=== PATIENT | male | born 1985 | race Caucasian/White ===

== ENCOUNTER 2020-06-27 15:27 | Emergency (ER) | payer OTHER ==
[~2020-06-27] VITALS: Ht 188 cm; Wt 88.5 kg
[2020-06-27 15:47] VITALS: Ht 188 cm; Wt 88.5 kg
[2020-06-27 17:22] LABS: BASOPHIL % 0.4 % (0.2-1.5); PLATELET COUNT 171 x10^3mcL (152-348); RED CELL DISTRIBUTION WIDTH 13.1 % (12.1-16.2)
[2020-06-27 17:38] LABS: CARBON DIOXIDE 32.1 mmol/L (21-32); CHLORIDE SERUM 101 mmol/L (98-107); GFR1 > 60 mL/min; GLUCOSE SERUM 88 mg/dL (74-106); POTASSIUM SERUM 3.9 mmol/L (3.5-5.1); SODIUM SERUM 137 mmol/L (136-145)
[2020-06-27 17:42] LABS: FREE T4 0.87 ng/dL (0.76-1.46); FREE THYROXINE INDEX 1.9 ug/dL (1.4-4.5); T4(THYROXINE) 5.7 ug/dL (4.7-13.3)
[2020-06-27 17:43] LABS: ALKALINE PHOSPHATASE 75 U/L (46-116); ALT/SGPT 22 U/L (16-63); AST/SGOT 12 U/L (15-37); BILIRUBIN TOTAL 0.34 mg/dL (0.20-1.00); LIPASE 169 IU/L (73-393); TOTAL PROTEIN, SERUM 7.3 g/dL (6.4-8.2)
[2020-06-27 18:00] LABS: T3 TOTAL 1.17 ng/mL
[2020-06-27 18:27] LABS: ERYTHROCYTE SED RATE 7 mm/hr (0-15)
[2020-06-27 19:10] VITALS: BP 111/60
== END 2020-06-27 19:19 | disposition home or self-care (01) ==
LOC: ED 15:27
PROVIDERS: Emergency Medicine
DX: R51.9 Headache, unspecified (principal); R53.1 Weakness; K21.9 Gastro-esophageal reflux disease without esophagitis; R11.0 Nausea; R07.89 Other chest pain; R10.9 Unspecified abdominal pain
CPT/HCPCS: 83880; 84439